=== PATIENT | female | born 1985 | race American Indian/Alaskan Native ===

== ENCOUNTER 2018-03-22 12:06 | Emergency (ER) | payer SELFPAY ==
--- NOTE | 2018-03-22 15:01 | Emergency Department Report ---
ED General Adult HPI - General Chief complaint: High BP Stated complaint: HYPERTENSION Time Seen by Provider: 03/22/18 14:39 Source: patient Mode of arrival: Ambulatory Limitations: No Limitations - History of Present Illness Initial comments: Mrs. Wayne is a pleasant healthy 32-year-old female with a history of severe hypertension for the past 11 years since her early 20s. Recently she was without health insurance. Consequently she ran out of antihypertensive medications for the past 2 weeks. Yesterday she was unable to obtain dental care due to severely high blood pressure readings. She comes to the ER for blood pressure management. She does not have headache currently. She does not denies visual changes. Denies chest pain or any physical symptoms at this time. PCP is Dr. Bogdan Aguilar. She takes Exforge HCTZ. Her normal systolic blood pressure is in the 150s range. Occupation: english composition teacher -: Grad[employer], week(s) (2) Location: head Severity scale (0 -10): 0 Improves with: medication Associated Symptoms: denies other symptoms, headaches Treatments Prior to Arrival: Aspirin (excedrin) - Related Data Previous Rx's Medication Instructions Recorded Last Taken Type Amlodipine/Valsartan/Hcthiazid 1 each PO DAILY 30 Days #30 tablet 03/22/18 Unknown Rx [Exforge Hct 10-160-12.5 mg Tab] Allergies Allergy/AdvReac Type Severity Reaction Status Date / Time No Known Allergies Allergy Unverified 03/22/18 12:18 ED Review of Systems ROS: Stated complaint: HYPERTENSION Other details as noted in HPI Comment: All other systems reviewed and negative Constitutional: denies: fever, malaise Respiratory: denies: cough Cardiovascular: denies: chest pain ED Past Medical Hx - Past Medical History Previous Medical History?: Yes Hx Hypertension: Yes - Surgical History Additional Surgical History: Tonsils, right shoulder - Family History Family history: hypertension - Social History Smoking Status: Never Smoker Substance Use Type: None - Medications Home Medications: Home Medications Medication Instructions Recorded Confirmed Last Taken Type Amlodipine/Valsartan/Hcthiazid 1 each PO DAILY 30 Days #30 tablet 03/22/18 Unknown Rx [Exforge Hct 10-160-12.5 mg Tab] ED Physical Exam - General Limitations: No Limitations General appearance: alert, in no apparent distress - Head Head exam: Present: atraumatic, normocephalic - Eye Eye exam: Present: normal appearance - ENT ENT exam: Present: mucous membranes moist - Neck Neck exam: Present: normal inspection, full ROM. Absent: tenderness, meningismus - Respiratory Respiratory exam: Present: normal lung sounds bilaterally. Absent: respiratory distress, wheezes, rales, rhonchi - Cardiovascular Cardiovascular Exam: Present: regular rate, normal rhythm, normal heart sounds. Absent: systolic murmur, diastolic murmur, rubs, gallop - GI/Abdominal GI/Abdominal exam: Present: soft, normal bowel sounds. Absent: distended, tenderness, guarding, rebound - Extremities Exam Extremities exam: Present: normal inspection - Back Exam Back exam: Present: normal inspection - Neurological Exam Neurological exam: Present: alert, oriented X3 - Psychiatric Psychiatric exam: Present: normal affect, normal mood - Skin Skin exam: Present: warm, dry, intact, normal color. Absent: rash ED Course Vital Signs 03/22/18 12:18 Temperature 98.1 F Pulse Rate 78 Respiratory 18 Rate Blood Pressure 194/112 O2 Sat by Pulse 100 Oximetry ED Medical Decision Making - Medical Decision Making Ms. Frye presents with asymptomatic hypertension due to medication noncompliance. She currently has active healthcare insurance. I referred her to both sample builder and parts sales advisor for hypertension consultation. I strongly encouraged her to follow with her PCP Dr. Farnsworth. I did provide 30 day prescription for ExForge HCT Critical care attestation.: If time is entered above; I have spent that time in minutes in the direct care of this critically ill patient, excluding procedure time. ED Disposition Clinical Impression: Hypertensive urgency Disposition: DC-01 TO HOME OR SELFCARE Is pt being admited?: No Does the pt Need Aspirin: No Condition: Stable Instructions: Chronic Hypertension (ED) Prescriptions: Amlodipine/Valsartan/Hcthiazid [Exforge Hct 10-160-12.5 mg Tab] 1 each PO DAILY 30 Days #30 tablet
[2018-03-22] MEDS ORDERED: NORMODYNE PO ONE (16:00)
[2018-03-22 16:10] VITALS: BP 159/102
== END 2018-03-22 16:11 | disposition home or self-care (01) ==
LOC: ED 12:06
DX: I16.0 Hypertensive urgency (principal); I10 Essential (primary) hypertension; Z90.89 Acquired absence of other organs
CPT/HCPCS: 99282